=== PATIENT | female | born 1960 | race Caucasian/White ===

== ENCOUNTER 2023-12-01 06:00 | Outpatient (CLI) | payer MEDICARE, SELFPAY | END 2023-12-01 06:01 | disposition home or self-care (01) | LOC: RAD 12-18 08:56 | PROVIDERS: Family Provider Family Medicine; PCP Family Medicine; Visit Provider Family Medicine | DX: Z00.00 Encounter for general adult medical examination without abnormal findings (principal) | CPT/HCPCS: 80053; 80061 ==

== ENCOUNTER 2023-12-09 13:56 | Outpatient (CLI) | payer MEDICARE, SELFPAY ==
--- NOTE | 2023-12-09 14:30 | MM_ITS ---
WS: [id number] BILATERAL 3D TOMOSYNTHESIS DIGITAL SCREENING MAMMOGRAPHY WITH CAD CLINICAL INFORMATION: screening HISTORY: Screening mammogram. No current complaints. COMPARISON: 2010 TECHNIQUE: Bilateral CC and MLO views. FINDINGS: Scattered fibroglandular densities bilaterally. No suspicious focal mass, asymmetry, calcifications, or architectural distortion. No evidence of malignancy. Intramammary lymph node along the RIGHT axill wai tail unchanged. MM/[place] [id number] IMPRESSION: BI-RADS: 2-Benign FOLLOW UP: 1 Year Follow-up Recommend return to annual screening mammography.
--- NOTE | 2023-12-09 15:00 | XR_ITS ---
WS: [id number] SCREENING DEXA SCAN Showcase CLINICAL INFORMATION: screening COMPARISON: None. FINDINGS: The L1-L4 bone mineral density measures 1.174 g/cm2. This corresponds to a T score score of -0.1 and Z score of 0.8. Left femoral neck bone mineral density measures 0.907 g/cm2. This corresponds to a T score of -0.8 an d Z score of -0.1. Right femoral neck bone mineral density measures 0.884 g/cm2. This corresponds to a T score -1.0of an d Z score of -0.3. Mean femoral neck bone mineral density measures 0.896 g/cm2. This corresponds to a T score of -0.9 an d Z score of -0.2. XR/XR DEXA axial skeleton* [id number] IMPRESSION: Normal bone mineralization lumbar spine. Osteopenia femoral necks at the lower end of the range Patient's FRAX calculated 10 year probability for major osteoporotic fracture i s 18.4% and osteoporotic hip fracture is 2.4%.
== END 2023-12-09 13:57 | disposition home or self-care (01) ==
LOC: RAD 13:57
PROVIDERS: Family Provider Family Medicine; PCP Family Medicine; Visit Provider Family Medicine
DX: Z12.31 Encounter for screening mammogram for malignant neoplasm of breast (principal); R92.323 Mammographic fibroglandular density, bilateral breasts; Z00.00 Encounter for general adult medical examination without abnormal findings
CPT/HCPCS: 77063; 77067; 77080

== ENCOUNTER → 2023-12-10 13:03 | Outpatient (BNVA) | payer MEDICARE, SELFPAY | PROVIDERS: Family Provider Family Medicine; PCP Family Medicine; Referring Provider Family Medicine; Visit Provider Student in an Organized Health Care Education/Training Program | DX: Z12.11 Encounter for screening for malignant neoplasm of colon (principal); R03.0 Elevated blood-pressure reading, without diagnosis of hypertension | CPT/HCPCS: 99204 ==

== ENCOUNTER 2024-02-01 07:09 | Day surgery (SDC) | payer MEDICARE, SELFPAY ==
[2024-02-01 07:31] VITALS: BP 133/71; PULSE 73; RESP 18; TEMP 36.2; O2SAT 95; BMI 30.7
[2024-02-01] MEDS: sodium chloride 0.9% 1,000 ML 30 ML IV (07:41)
--- NOTE | 2024-02-01 08:25 | ANES.PREANE2 ---
Pre-Anesthetic Assessment Height/Weight: Height 1.68 m Weight 86.183 kg Temp Pulse Resp BP Pulse Ox O2 Del Method 97.2 F L 73 18 133/71 95 Room Air 02/01/24 07:31 02/01/24 07:31 02/01/24 07:31 02/01/24 07:31 02/01/24 07:31 02/01/24 07:31 Operation Date: 02/01/24 08:15 Proposed Procedures p Colonoscopy - 95076, G0121, Z12.11(Not Applicable) - Uriel Velazco MD Familial anesthetic complications: None Was Beta Amaury taken within 24 hours: N/A Was Clonidine taken within 24 hours: N/A Last intake: Intake Last Liquid Date 01/31/24 Last Liquid Time 20:00 Last Solid Date 01/30/24 Last Solid Time 19:00 Social Tobacco and No alcohol Exam alert, oriented x 3, clear to auscultation bilaterally and regular rate & rhythm Airway Mallampati: Class I Dentition: false Anesthetic Plan ASA status: 2 Anesthesia: MAC Risk of > 500 ml blood loss (7ml/kg in children): No Medications/Allergies Home Medications Medication Instructions Recorded Confirmed Last Taken Type No Known Home Medications 12/10/23 01/28/24 Unknown History Allergies Allergy/AdvReac Type Severity Reaction Status Date / Time Sulfa (Sulfonamide Allergy ALGY-Rash Verified 01/28/24 08:15 Antibiotics) Current Medications Generic Name Dose Route Start Last Admin Trade Name Freq PRN Reason Stop Dose Admin Sodium Chloride 1,000 mls @ 30 mls/hr 02/01/24 07:15 02/01/24 07:41 Sodium Chloride 0.9% IV 30 mls/hr .Q24H LUIS Administration PFSH Anesthesia Family History (Updated 12/10/23 @ 13:22 by Sury Diego MA) Sister Breast cancer Social History Smoking and tobacco/nicotine status: current every day tobacco/nicotine user Data Anesthesia Cardiac Studies: No Data to Display
--- NOTE | 2024-02-01 08:35 | W.PM.OPSUD ---
Surgery/Procedure H&P Update DATE OF PROCEDURE: February 01, 2024 DATE H&P PERFORMED: 12/10/23 H&P UPDATE INFORMATION: I have reviewed H&P completed within last 30 days, I have examined patient prior to procedure and No changes to prior documentation PLANNED PROCEDURE: Operation Date: 02/01/24 08:15 Proposed Procedures p Colonoscopy - 99750, G0121, Z12.11(Not Applicable) - Uriel Velazco MD
[2024-02-01 09:20] VITALS: BP 136/86; PULSE 85; RESP 20; TEMP 36.1; O2SAT 91
[2024-02-01 09:41] VITALS: BP 141/96; PULSE 80; RESP 18; O2SAT 93
--- NOTE | 2024-02-01 10:10 | ANE.PACU2 ---
Inpatient post-anesthesia follow up: Airway intact: Yes Vital signs: Temperature 97.0 F Pulse Rate 80 Respiratory Rate 18 Blood Pressure 141/96 Pulse Oximetry 93 Oxygen Delivery Me thod Room Air Oxygen Flow Rate Fraction of Inspir ed Oxygen Hydration adequate: Yes Nausea and vomiting: No Pain level: 1 Mental status: Baseline
--- NOTE | 2024-02-02 12:26 | W.PM.OPSFHP ---
Same Day Surgery H&P Indication for Procedure/HPI DATE OF PROCEDURE: February 02, 2024 CHIEF COMPLAINT/INDICATIONFOR SURGICAL PROCEDURE: Screening colonoscopy PREOP DIAGNOSIS: Screening colonoscopy PLANNED PROCEDURE: Operation Date: 02/01/24 08:15 Proposed Procedures p Colonoscopy - 14180, G0121, Z12.11(Not Applicable) - Uriel Velazco MD Medications/Allergies* Home Medications Medication Instructions Recorded Confirmed Type No Known Home Medications 12/10/23 01/28/24 History Allergies/Adverse Reactions Allergy/AdvReac Type Severity Reaction Status Date / Time Sulfa (Sulfonamide Allergy ALGY-Rash Verified 01/28/24 08:15 Antibiotics) Pertinent History/Comorbid Conditions* Family History (Updated 12/10/23 @ 13:22 by Sury Diego MA) Breast cancer Sister Social History Smoking and tobacco/nicotine status: current every day tobacco/nicotine user Pertinent Exam Findings alert, oriented x 3, clear to auscultation bilaterally, regular rate & rhythm and procedure specific exam findings Abdomen soft nontender nondistended Recommendations Surgery/Procedure today Other Plans: Proceed with colonoscopy Coding Level of Care Code Acute Code for Chg Fwd
== END 2024-02-01 10:13 | disposition home or self-care (01) ==
PROVIDERS: PCP Family Medicine; Visit Provider Student in an Organized Health Care Education/Training Program
PROC: 0DJD8ZZ Inspection of Lower Intestinal Tract, Via Natural or Artificial Opening Endoscopic (ICD-10-PCS; CPT 45378; principal; 2024-02-01 08:15)
DX: Z12.11 Encounter for screening for malignant neoplasm of colon (principal); D12.4 Benign neoplasm of descending colon; D12.8 Benign neoplasm of rectum; F17.200 Nicotine dependence, unspecified, uncomplicated
CPT/HCPCS: 45380; 45385; 88305; J2704; J7030

== ENCOUNTER → 2024-02-18 09:10 | Outpatient (BNVA) | payer MEDICARE, SELFPAY | PROVIDERS: PCP Family Medicine; Visit Provider Student in an Organized Health Care Education/Training Program | DX: Z09 Encounter for follow-up examination after completed treatment for conditions other than malignant neoplasm (principal) | CPT/HCPCS: 99213 ==